=== PATIENT | male | born 1940 | race Two or more races ===

== ENCOUNTER 2017-09-30 21:48 | Emergency (ER) | payer MEDICARE ==
[2017-09-30 22:15] LABS: ADD MAN DIFF? NO
[2017-09-30 22:17] LABS: BASO # 0.2 x10^3/uL (0.0-0.2); BASO % 1 % (0-3); EOS # 0.2 x10^3/uL (0.0-0.7); EOS % 1 % (0-3); HEMATOCRIT 43.5 % (39.0-53.0); HEMOGLOBIN 14.8 g/dL (13.0-17.5); LYMPH # 2.8 x10^3/uL (1.0-4.8); LYMPH % 21 % (24-48); MEAN CORPUSCULAR HEMOGLOBIN 32 pg (25-35); MEAN CORPUSCULAR HGB CONC 34 g/dL (31-37); MEAN CORPUSCULAR VOLUME 93 fL (79-100); MONO # 1.1 x10^3/uL (0.0-1.1); MONO % 9 % (0-9); NEUT # 8.8 x10^3uL (1.8-7.7); NEUT % 67 % (31-73); PLATELET COUNT 242 x10^3/uL (140-400); RED BLOOD COUNT 4.66 x10^6/uL (4.30-5.70); RED CELL DISTRIBUTION WIDTH 13.7 % (11.5-14.5)
[2017-09-30 22:34] LABS: ANION GAP 10 (6-14); BLOOD UREA NITROGEN 17 mg/dL (8-26); BUN/CREATININE RATIO 15 (6-20); CALCIUM 8.3 mg/dL (8.5-10.1); CARBON DIOXIDE 25 mmol/L (21-32); CHLORIDE 104 mmol/L (98-107); CREATININE 1.1 mg/dL (0.7-1.3); GFR 65.3; GLUCOSE 137 mg/dL (70-99); POTASSIUM 4.3 mmol/L (3.5-5.1); SODIUM 139 mmol/L (136-145)
[2017-09-30 22:37] LABS: TROPONINI < 0.017 ng/mL (0.000-0.055)
[2017-09-30 22:39] LABS: ALBUMIN 3.1 g/dL (3.4-5.0); ALBUMIN/GLOBULIN RATIO 0.9 (1.0-1.7); ALK PHOS 71 U/L (46-116); ALT (SGPT) 39 U/L (16-63); AST (SGOT) 39 U/L (15-37); TOTAL BILIRUBIN 0.7 mg/dL (0.2-1.0); TOTAL PROTEIN 6.7 g/dL (6.4-8.2)
[2017-09-30] MEDS: IV NORMAL SALINE 1000ML BAG 1,000 ML IV (22:45)
[2017-09-30] MEDS: ACETAMINOPHEN/CODEINE 300/30MG TABLET. PO (23:25)
== END 2017-09-30 23:55 | disposition home or self-care (01) ==
LOC: ER 21:48
DX: R55 Syncope and collapse (principal); R51 Headache; M54.5 Low back pain; G89.29 Other chronic pain
CPT/HCPCS: 36415; 70450; 71045; 80053; 84484; 85025; 93005; 96360; 99285-25; J7030

== ENCOUNTER 2017-10-05 13:41 | Emergency (ER) | payer MEDICARE ==
[2017-10-05 14:36] LABS: BILIRUBIN,URINE NEGATIVE (NEG); CLARITY,URINE CLEAR; COLOR,URINE YELLOW; GLUCOSE,URINE NEGATIVE (NEG); NITRITE,URINE NEGATIVE (NEG); PH,URINE 6.5; PROTEIN,URINE NEGATIVE (NEG-TRACE); UROBILINOGEN,URINE 0.2 mg/dL (0.2 mg/dL)
[2017-10-05 15:00] LABS: BACTERIA,URINE 0 /HPF (0-FEW); RBC,URINE OCC /HPF (0-2); SQUAMOUS EPITHELIAL CELL,UR OCC /LPF; WBC,URINE OCC /HPF (0-4)
[2017-10-05] MEDS: predniSONE 20 MG TABLET PO (15:23)
[2017-10-05] MEDS: MAGNESIUM CITRATE 296 ML SOLUTION. PO (15:23)
[2017-10-05] MEDS: CYCLOBENZAPRINE 10 MG TABLET. PO (15:23)
[2017-10-05] MEDS: KETOROLAC 60 MG/2 ML INJ. IM (15:24)
== END 2017-10-05 15:30 | disposition home or self-care (01) ==
LOC: ER 15:30
DX: M47.816 Spondylosis without myelopathy or radiculopathy, lumbar region (principal); M54.41 Lumbago with sciatica, right side; K59.00 Constipation, unspecified; G89.29 Other chronic pain
CPT/HCPCS: 72100; 74022; 81001; 96372; 99285-25; J1885; J7512